=== PATIENT | male | born 1940 | race Caucasian/White ===

== ENCOUNTER 2019-07-17 09:01 | Outpatient (CLI) | payer MEDICARE, SELFPAY ==
[2019-07-17 09:28] VITALS: BMI 24.4
--- NOTE | 2019-07-17 09:32 | NMCV_ITS ---
NM savana perf SPECT r/s* [id number] Jhon Rainey Age: 78 Gender: M : 1940 Exam Date: 07/17/2019 09:32 Ordering Phys: Vikram Reno MD Technologist: LATESHA Diana Exam Location: [facility] Indications: AORTIC VALVE STENOSIS STRESS TEST Please see separate stress test report in [facility] for full findings IMAGE PROTOCOL Rest/Stress 1 Lexiscan Day Radiopharmaceutical Dose (mCi) Administration Site Administered by Rest: Tc-99m 10.9 IV LATESHA Chavarria Sestamibi Stress:Tc-99m 32.6 IV LATESHA Chavarria Sestamibi Rest: 17-Jul-2019 60 Discovery 630 Stress: 17-Jul-2019 30 Discovery 630 0.4mg Lexiscan. Supine position only as patient was unable to lay prone. SPECT RESULTS Technical Quality: Good Raw Data Analysis: Normal Image Corrections: No attenuation or motion correction applied Summed Stress Score: 10 Summed Rest Score: 8 Summed Difference Score: 5 PERFUSION FINDINGS Moderate area of decreased tracer uptake was noted in the mid mid and apical inferior, mid inferolateral, apical lateral, apical septal and LV apex. Some reversibility was noted in the mid inferolateral, apical lateral, apical septal and LV apex FUNCTIONAL RESULTS (calculated via Gated SPECT) Stress Image LV EF (%): 41 Stress EDV (mL):104 TID: 0.95 Stress ESV (mL):61 FUNCTIONAL FINDINGS: Segmental wall motion analysis revealed diffuse hypokinesia of the septum and LV apex. IMPRESSIONS 1. Myocardial perfusion imaging revealing a moderate area of decreased tracer uptake in the inferior, inferolateral and apical regions with some reversibility, suggestive of myocardial scarring with ischemia in the distribution of the right coronary artery and circumflex artery. 2. Diminished LV ejection fraction of 41%. 3. Wall motion normalities as mentioned above. 4. Mildly dilated LV cavity with an end-systolic volume of 61 mL No similar previous studies are available for comparison Dr Warren Good MD [facility] (Electronically Signed) Final Date: 18 July 2019 08:51 S
--- NOTE | 2019-07-17 09:32 | ECG_ITS ---
NAME OF STUDY: LEXISCAN SESTAMIBI STRESS TEST INDICATION: Aortic Valve Stenosis, Surgical Clearance RESULTS TO BEAR Kelly MD [facility] FAX RESULTS TO PROCEDURE: At the baseline, the EKG revealed atrial fibrillation with a controlled ventricular response rate of 87 bpm. The baseline blood pressure was 119/70 mm Hg with a heart rate of 96 beats/min. Lexiscan was infused over a period of 20 seconds. A total of 0.4 milligrams of Lexiscan was infused. The stress phase was continued for a total of 5 minutes. Heart rate at the end of the stress phase was 113 with a blood pressure 116/90. The EKG at the peak infusion revealed no significant changes. Sestamibi was injected 20 seconds after the Lexiscan infusion. Blood pressure at the end of the recovery phase was 128/81 with a heart rate of 99 per minute. CONCLUSION: 1. No significant EKG changes with the LexiScan infusion 2. No LexiScan induced chest pain or cardiac arrhythmia 3. Normal blood pressure and heart rate response 4. Sestamibi/sestamibi perfusion scan pending; see separate report. Electronically Signed On 07-19-2019 20:40:54 CODING FILE CLERK by Warren Good M.D. [email or web address]
--- NOTE | 2019-07-17 11:10 | SUR.PREOP ---
PRE STRESS NOTE Patient noted to be in Afib. Rate variable. Already at 83% while resting. Dr Good's notified. Verbal order to change to Lexiscan as long as [facility] office is aggreable to the change. I called [facility] and spoke with Nancy Duff RN about the findings. She spoke with Dr Reno and he is agreeable for the patient to have a lexiscan. Orders changed as noted. See new order detail for lexiscan.
--- NOTE | 2019-07-17 11:35 | SUR.PREOP ---
Patient reports no pain or discomfort prior to the start of the procedure.
[2019-07-17] MEDS: regadenoson 0.4 Mg/5 ml Syringe IVP (11:36)
[2019-07-17 11:41] VITALS: BP 125/83; PULSE 97
== END 2019-07-17 09:02 | disposition home or self-care (01) ==
PROVIDERS: Family Provider Physician Assistant Medical; PCP Physician Assistant Medical; Visit Provider Internal Medicine Cardiovascular Disease
DX: I35.0 Nonrheumatic aortic (valve) stenosis (principal); I50.43 Acute on chronic combined systolic (congestive) and diastolic (congestive) heart failure; I48.91 Unspecified atrial fibrillation; I71.4 Abdominal aortic aneurysm, without rupture; Z01.818 Encounter for other preprocedural examination; Z95.2 Presence of prosthetic heart valve
CPT/HCPCS: 78452; 93017; A9500; J2785

== ENCOUNTER → 2020-10-07 14:36 | Outpatient (BNVA) | payer MEDICARE, SELFPAY | PROVIDERS: Family Provider Physician Assistant Medical; PCP Physician Assistant Medical; Referring Provider Family Medicine; Visit Provider Orthopaedic Surgery | DX: M54.5 Low back pain (principal); S32.010A Wedge compression fracture of first lumbar vertebra, initial encounter for closed fracture; X58.XXXA Exposure to other specified factors, initial encounter | CPT/HCPCS: 72110 ==

== ENCOUNTER → 2020-10-23 12:26 | Outpatient (BNVA) | payer MEDICARE, SELFPAY | PROVIDERS: Family Provider Physician Assistant Medical; PCP Family Medicine; Referring Provider Orthopaedic Surgery; Visit Provider Anesthesiology Pain Medicine | DX: G89.29 Other chronic pain (principal); M47.816 Spondylosis without myelopathy or radiculopathy, lumbar region; M48.061 Spinal stenosis, lumbar region without neurogenic claudication; M54.9 Dorsalgia, unspecified; Z86.79 Personal history of other diseases of the circulatory system; Z79.891 Long term (current) use of opiate analgesic | CPT/HCPCS: 99205 ==

== ENCOUNTER → 2020-10-28 13:31 | Outpatient (BNVA) | payer MEDICARE, SELFPAY | PROVIDERS: Family Provider Physician Assistant Medical; PCP Family Medicine; Visit Provider Anesthesiology Pain Medicine | DX: M47.816 Spondylosis without myelopathy or radiculopathy, lumbar region (principal); M54.9 Dorsalgia, unspecified; Z79.891 Long term (current) use of opiate analgesic; Z87.891 Personal history of nicotine dependence | CPT/HCPCS: 64493; 64494; 64495; J1030; J3490 ==

== ENCOUNTER 2020-11-06 06:00 | Outpatient (RCR) | payer MEDICARE, SELFPAY | END 2020-12-03 23:59 | disposition home or self-care (01) | LOC: SPT 06:00 | PROVIDERS: Family Provider Physician Assistant Medical; PCP Family Medicine; Referring Provider Anesthesiology Pain Medicine; Visit Provider Anesthesiology Pain Medicine | DX: M54.5 Low back pain (principal); G89.29 Other chronic pain | CPT/HCPCS: 97110; 97140; 97162; G0283 ==

== ENCOUNTER → 2020-11-11 10:39 | Outpatient (BNVA) | payer MEDICARE, SELFPAY | PROVIDERS: Family Provider Physician Assistant Medical; PCP Family Medicine; Visit Provider Anesthesiology Pain Medicine | DX: M54.9 Dorsalgia, unspecified (principal); M47.816 Spondylosis without myelopathy or radiculopathy, lumbar region; M48.061 Spinal stenosis, lumbar region without neurogenic claudication; Z79.891 Long term (current) use of opiate analgesic | CPT/HCPCS: 99214 ==

== ENCOUNTER → 2020-11-21 13:11 | Outpatient (BNVA) | payer MEDICARE, SELFPAY | PROVIDERS: Family Provider Physician Assistant Medical; PCP Family Medicine; Visit Provider Anesthesiology Pain Medicine | DX: M48.061 Spinal stenosis, lumbar region without neurogenic claudication (principal); M54.16 Radiculopathy, lumbar region; M54.9 Dorsalgia, unspecified; Z79.891 Long term (current) use of opiate analgesic | CPT/HCPCS: 64483; 64484; J1100; J3490 ==

== ENCOUNTER 2020-12-04 06:00 | Outpatient (RCR) | payer MEDICARE, SELFPAY | END 2020-12-23 23:00 | disposition home or self-care (01) | LOC: SPT 06:00 | PROVIDERS: Family Provider Physician Assistant Medical; PCP Family Medicine; Referring Provider Anesthesiology Pain Medicine; Visit Provider Anesthesiology Pain Medicine | DX: Z79.891 Long term (current) use of opiate analgesic; M54.5 Low back pain; G89.29 Other chronic pain | CPT/HCPCS: 97110; 97140; 99214; G0283 ==

== ENCOUNTER → 2020-12-04 14:12 | Outpatient (BNVA) | payer MEDICARE, SELFPAY | PROVIDERS: Family Provider Physician Assistant Medical; PCP Family Medicine; Visit Provider Anesthesiology Pain Medicine | DX: M47.816 Spondylosis without myelopathy or radiculopathy, lumbar region (principal); M48.061 Spinal stenosis, lumbar region without neurogenic claudication; Z79.891 Long term (current) use of opiate analgesic; Z87.891 Personal history of nicotine dependence | CPT/HCPCS: 99214 ==

== ENCOUNTER → 2020-12-19 12:46 | Outpatient (BNVA) | payer MEDICARE, SELFPAY | PROVIDERS: Family Provider Physician Assistant Medical; PCP Family Medicine; Visit Provider Anesthesiology Pain Medicine | DX: M47.816 Spondylosis without myelopathy or radiculopathy, lumbar region (principal); M54.9 Dorsalgia, unspecified; Z79.891 Long term (current) use of opiate analgesic | CPT/HCPCS: 64493; 64494; 64495; J3490 ==

== ENCOUNTER → 2021-01-02 10:16 | Outpatient (BNVA) | payer MEDICARE, SELFPAY | PROVIDERS: Family Provider Physician Assistant Medical; PCP Family Medicine; Visit Provider Anesthesiology Pain Medicine | DX: M47.816 Spondylosis without myelopathy or radiculopathy, lumbar region (principal); M48.061 Spinal stenosis, lumbar region without neurogenic claudication; Z79.891 Long term (current) use of opiate analgesic | CPT/HCPCS: 99214 ==

== ENCOUNTER 2021-03-11 13:10 | Outpatient (CLI) | payer MEDICARE, SELFPAY ==
--- NOTE | 2021-03-11 13:15 | USCV_ITS ---
ReddJhon Age: 80 Gender: M : 1940 Exam Date: 03/11/2021 13:22 Ordering Phys: Rosi Ca Technologist: Enedina Garcias [place]am [place] [facility] [place] Indication: LUE swelling HISTORY: patient denies fall or injury. Heavily bruised left arm, shoulder, down to antecubital fossa area. PROCEDURES: Venous duplex imaging was performed in only the left upper extremity. The following venous structures were evaluated: internal jugular vein, subclavian vein, axillary vein, and brachial veins. FINDINGS: The veins of the left upper extremity are readily compressible with normal venous flow dynamics including spontaneous flow, respiratory phasic variation and augmentation. Complex fluid collection with air fluid level anterior left shoulder, measuring 1.9 x 3.0 cm. CONCLUSIONS No left upper extremity DVT. Left shoulder soft tissue hematoma. Dr. Latrice Fischer DO (Electronically Signed) Final Date: 11 March 2021 15:06 S
== END 2021-03-11 13:11 | disposition home or self-care (01) ==
PROVIDERS: PCP Family Medicine; Visit Provider Nurse Practitioner Family
DX: M79.89 Other specified soft tissue disorders (principal); S40.022A Contusion of left upper arm, initial encounter; X58.XXXA Exposure to other specified factors, initial encounter
CPT/HCPCS: 93971